=== PATIENT | male | born 1995 | race Caucasian/White ===

== ENCOUNTER 2017-06-23 17:27 | Emergency (ER) | payer SELFPAY ==
[~2017-06-23 17:27] MED LIST: AMOXICILLIN875 MG PO; AUGMENTIN; CONCERTA PO; PHENERGAN PO; ZITHROMAX200 MG/5 M PO; ZOFRAN ODT4 MG PO; [UNRECOGNIZED DRUG - OTHER]
== END 2017-06-23 18:25 | disposition home or self-care (01) ==
LOC: SED 17:27
DX: L02.212 Cutaneous abscess of back [any part, except buttock and flank] (principal); F17.200 Nicotine dependence, unspecified, uncomplicated
CPT/HCPCS: 10060; 87070; 87077; 87186; 87205; 99283

== ENCOUNTER 2017-06-30 23:49 | Emergency (ER) | payer SELFPAY ==
[~2017-06-30] VITALS: Ht 180.3 cm; Wt 68.0 kg
[2017-07-01] MEDS ORDERED: KEFLEX500 MG (00:02)
[2017-07-01] MEDS ORDERED: BACTRIM DS TAB1 EACH (00:02)
== END 2017-07-01 00:32 | disposition home or self-care (01) ==
LOC: SED 23:49
DX: Z48.01 Encounter for change or removal of surgical wound dressing (principal); F90.9 Attention-deficit hyperactivity disorder, unspecified type; F17.200 Nicotine dependence, unspecified, uncomplicated
CPT/HCPCS: 99282